=== PATIENT | male | born 1950 | race Caucasian/White ===

== ENCOUNTER 2017-01-22 09:44 | Emergency (ER) | payer OTHER ==
--- NOTE | 2017-01-22 10:09 | CPEKG ---
Heart Rate: 68 RR Interval: 882 P-R Interval: 180 QRSD Interval: 100 QT Interval: 392 QTC Interval: 417 P [place]: -15 QRS [place]: -75 T Wave [place]: 42 EKG Severity - ABNORMAL ECG - EKG Impression: SINUS RHYTHM EKG Impression: LEFT ANTERIOR FASCICULAR BLOCK Electronically Signed By: Olive Chou 22-Jan-2017 15:25:24
--- NOTE | 2017-01-22 10:13 | EDPHY ---
H & P Stated Complaint: Intermittent upper sternal burning x 1 wk;told to go to ED for eval HPI/ROS: CHIEF COMPLAINT: Chest pain HISTORY OF PRESENT ILLNESS: The patient is a 67 y/o male with a history of hyperlipidemia arriving at the referral of his PCP's office complaining of chest pain. He has a history of GERD and believes his symptoms are related to acid reflux. He takes Prevacid for this and uses it about 3 times per week including this morning. For the last week every night after 3-4 hours of sleep he wakes up with significant chest discomfort that he describes as "an itch that hurts." A few days ago while sitting in a meeting he developed aching left armpit pain that resolved after ibuprofen. He has not had any further axillary , shoulder, or arm pain. He has continued to exercise normally without eliciting symptoms. He has no associated dyspnea. He's had some mild intermittent chills, achiness, and looser stool that began around the same time as his chest pain. No history of diabetes, hypertension. Last stress test was 7- 8 years ago. He did get a flu vaccination this season. REVIEW OF SYSTEMS: A ten point review of systems was performed and is negative with the exception of the items mentioned in the HPI. Past medical history: Hyperlipidemia - Simvastatin; GERD - Prevacid 3 times weekly; PVCs; prior pneumonia Past surgical history: Noncontributory Family history: Noncontributory Social history: . Exercises regularly. 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 No alcohol, cigarettes, or illicit drug use. PCP: Dr. Rainey. Prior medical records reviewed including urgent care note 01/09/[address] for abdominal pain. Negative CT at that visit. General Appearance: Alert. Vital signs reviewed. Blood pressure 150/80. Eyes: Pupils equal and round, no conjunctival injection, no discharge. Anicteric. ENT, Mouth: Mucous membranes are moist, no oropharyngeal erythema or edema. Neck: No lymphadenopathy, supple. Respiratory: Lungs are clear to auscultation; no wheezes, rales, or rhonchi. Cardiovascular: Regular rate and rhythm; no murmur, rub, or gallop. Gastrointestinal: Abdomen is soft and nontender, no masses or organomegaly, bowel sounds normal. Skin: Warm and dry, no rashes on exposed skin, normal color. Back: Nontender to palpation over the thoracolumbar spine. No CVAT. Extremities: No lower extremity edema, no calf tenderness or swelling. Neurological: Alert and oriented. Moving all four extremities easily and equally. Psychiatric: Normal affect. - Personal History Current Tetanus Diphtheria and Acellular Pertussis (TDAP): Yes - Medical/Surgical History Hx Asthma: No Hx Chronic Respiratory Disease: No Hx Diabetes: No Hx Cardiac Disease: No Hx Renal Disease: No Hx Cirrhosis: No Hx Alcoholism: No Hx HIV/AIDS: No Hx Splenectomy or Spleen Trauma: No Other PMH: GERD - Social History Smoking Status: Never smoked Constitutional: Initial Vital Signs Temperature (C) 36.7 C 01/22/17 10:00 Heart Rate 65 01/22/17 10:00 Respiratory Rate 16 01/22/17 10:00 Blood Pressure 150/80 H 01/22/17 10:00 O2 Sat (%) 98 01/22/17 10:00 O2 Delivery Mode Room Air Allergies/Adverse Reactions: sulfamethoxazole [From Bactrim] Adverse Reaction (Severe, Verified 01/22/17 10: 00) tongue swells erythromycin base [Erythromycin Base] Adverse Reaction (Mild, Verified 01/22/17 10:00) Rash Penicillins Adverse Reaction (Mild, Verified 01/22/17 10:00) Rash trimethoprim [From Bactrim] Adverse Reaction (Unknown, Verified 01/09/16 14:26) Home Medications: Medication Instructions Recorded Simvastatin [Zocor] 01/09/16 Lansoprazole [Prevacid] 15 mg PO 01/22/17 Medical Decision Making - Diagnostics EKG Interpretation: 12 lead EKG is interpreted in Trace master View by emergency department physician. Imaging: I viewed and interpreted images myself ED Course/Re-evaluation: This is a healthy 67 y/o male with a history of GERD who presents with a one- week history of intermittent nocturnal chest pain. He attributes his symptoms to GERD. He does not have symptoms at exertion. His exam is unremarkable. Plan for IV, labs, EKG, chest x-ray. 324mg PO aspirin administered. The 12 lead EKG was interpreted by myself. Sinus rhythm rate 68, left anterior fascicular block. See hard copy and/or "tracemaster" electronic copy for interpretation. No previous EKG for comparison. Chest x-ray is negative. Labs are completely normal. 1310: Consulted with Dr. Rainey, patient's PCP, and updated her on patient condition. She will follow up with him in her office. I suspect that his pain is secondary to GERD and I am recommending daily antacid medication, which she agrees to. His HEART score is 1 and I feel that he can safely be discharged home for outpatient follow-up. Differential Diagnosis: Chest pain including but not limited to GERD, myocardial ischemia, pulmonary embolus, chest wall pain, pleural inflammation and pulmonary infectious causes. - Data Points Laboratory Results: Laboratory Results 01/22/17 10:15 01/22/17 10:15 Departure - Departure Disposition: Home, Routine, Self-Care Clinical Impression: GERD (gastroesophageal reflux disease) Qualifiers: Esophagitis presence: esophagitis presence not specified Qualified Code(s): K21.9 - Gastro-esophageal reflux disease without esophagitis Condition: Good Instructions: Gastroesophageal Reflux Disease (ED) Additional Instructions: Please take Prevacid daily. You can also add Zantac to your regime. Please follow up with Dr. Rainey this week. I spoke with her and she is expecting to see you in her office for follow up. Return to the ED for chest pain particularly if it occurs with exertion, shortness of breath, lightheadedness, or other worsening of condition. Referrals: Cony Rainey MD [Primary Care Provider] - As per Instructions Report Scribed for: Olive Chou Report Scribed by: Sary Perez Date of Report: 01/22/17 Time of Report: 11:22 Physician Review and Approval Statement: 01/22/17 10:13 Portions of this note were transcribed by the medical coding instructor. I, Dr. Olive Chou, personally performed the history, physical exam, and medical decision- making; and confirmed the accuracy of the information in the transcribed note.
[2017-01-22 10:27] LABS: % IMMATURE GRANULYOCYTES 0.3 % (0.0-1.1); ABSOLUTE IMMATURE GRANULOCYTES 0.02 10^3/uL (0.00-0.10); ADD DIFF? NO; ADD MORPH? NO; ADD SCAN? NO; ATYPICAL LYMPHOCYTE FLAG 0 (0-99); FRAGMENT RBC FLAG 0 (0-99); HEMOGLOBIN 16.8 g/dL (13.7-17.5); LEFT SHIFT FLG 0 (0-99); LIPEMIA HEMOLYSIS FLAG 80 (0-99); MEAN CELL HEMOGLOBIN 29.7 pg (27.9-34.1); MEAN CELL HEMOGLOBIN CONCENTR. 33.6 g/dL (32.4-36.7); MEAN CELL VOLUME 88.3 fL (81.5-99.8); MEAN PLATELET VOLUME 9.7 fL (8.7-11.7); PLATELET CLUMPS FLAG 0 (0-99); PLATELET COUNT 229 10^3/uL (150-400); RED BLOOD CELL COUNT 5.66 10^6/uL (4.40-6.38); RED CELL DISTRIBUTION WIDTH 13.4 % (11.5-15.2)
[2017-01-22 10:44] LABS: ANION GAP 13 mEq/L (8-16); CALCIUM 9.6 mg/dL (8.5-10.4); CARBON DIOXIDE 27 mEq/l (22-31); CHLORIDE 103 mEq/L (97-110); GLOMERULAR FILTRATION RATE > 60; GLUCOSE 87 mg/dL (70-100); POTASSIUM 4.1 mEq/L (3.5-5.2); SODIUM 143 mEq/L (134-144)
[2017-01-22 10:54] LABS: TROPONIN I < 0.012 ng/mL (0.000-0.034)
[2017-01-22 11:59] VITALS: O2SAT 97
[2017-01-22 13:21] VITALS: BP 129/86; PULSE 62; RESP 17; TEMP 98.6
== END 2017-01-22 13:24 | disposition home or self-care (01) ==
DX: K21.9 Gastro-esophageal reflux disease without esophagitis (principal)

== ENCOUNTER → 2017-04-20 | Outpatient (CLI) | payer OTHER | LOC: BHFA 09:00 | PROVIDERS: ATTEND Internal Medicine Cardiovascular Disease | DX: R07.9 Chest pain, unspecified (principal) | CPT/HCPCS: 78452; 93017; A9500 ==